=== PATIENT | male | born 1960 | race Caucasian/White ===

== ENCOUNTER 2016-09-08 10:00 | Inpatient (IN) | payer BC ==
[~2016-09-08] VITALS: Ht 190.5 cm; Wt 102.0 kg
[~2016-09-08 10:00] MED LIST: CYCL-319 PO; HYDR-2059 PO; LOSA100T7 PO; NITR25OR2 PO
[2016-09-08] MEDS ORDERED: CEPASTAT LOZENGE MT PRN (13:00)
[2016-09-08] MEDS ORDERED: CYCLOBENZAPRINE 10 MG TAB PO PRN (13:00)
[2016-09-08] MEDS ORDERED: AL HYDROX/MG HYDROX/SIMETH 30 ML CUP PO PRN (13:00)
[2016-09-08] MEDS ORDERED: OXYCODONE/ACETAMINOPHEN (10/325) TAB PO PRN ×2 (13:00)
[2016-09-08] MEDS ORDERED: DIPHENHYDRAMINE 50 MG INJ IV PRN (13:00)
[2016-09-08] MEDS ORDERED: BISACODYL 10 MG SUPP PR PRN (13:00)
[2016-09-08] MEDS ORDERED: ZOLPIDEM 5 MG TAB PO PRN (13:00)
[2016-09-08] MEDS ORDERED: NALOXONE (0.4 MG/ML) INJ IV PRN (13:00)
[2016-09-08] MEDS ORDERED: ONDANSETRON 4 MG INJ IV PRN (13:00)
[2016-09-08] MEDS ORDERED: ACETAMINOPHEN 325 MG TAB PO PRN (13:00)
[2016-09-08 14:52] VITALS: BP 121/64; PULSE 70; RESP 20
[2016-09-08 14:54] VITALS: Ht 190.5 cm; Wt 102.0 kg
[2016-09-08 15:12] LABS: ADD SCAN DIFF NO
[2016-09-08 15:14] LABS: BASOPHILS % 0.6 % (0.0-2.0); EOSINOPHILS # 0.3 10^3/ul (0.0-0.5); EOSINOPHILS % 4.6 % (0.0-7.0); HEMATOCRIT 42.2 % (42.0-52.0); HEMOGLOBIN 14.6 g/dl (14.0-18.0); LYMPHOCYTES # 2.1 10^3/ul (0.8-2.9); LYMPHOCYTES % 30.6 % (15.0-51.0); MEAN CORPUSCULAR HEMOGLOBIN 31.7 pg (29.0-33.0); MEAN CORPUSCULAR HGB CONC 34.6 g/dl (32.0-37.0); MEAN CORPUSCULAR VOLUME 91.5 fl (82.0-101.0); MEAN PLATELET VOLUME 12.7 fl (7.4-10.4); MONOCYTE # 0.5 10^3/ul (0.3-0.9); MONOCYTES % 6.8 % (0.0-11.0); NEUTROPHIL # 3.9 10^3/ul (1.6-7.5); NEUTROPHILS % 57.1 % (39.0-77.0); PLATELET COUNT 194 10^3/UL (140-415); RED BLOOD COUNT 4.61 10^6/ul (4.70-6.10); RED CELL DISTRIBUTION WIDTH 11.7 % (11.5-14.5); WHITE BLOOD COUNT 6.9 10^3/ul (4.8-10.8)
[2016-09-08 15:44] LABS: CALCIUM 9.7 mg/dl (8.4-10.2); CREATININE 0.91 mg/dl (0.61-1.24); POTASSIUM 3.8 mmol/L (3.5-5.1)
[2016-09-08] MEDS: HYDROmorphONE 0.2 MG/ML PCA IV SCH ×3 (16:02→22:59)
[2016-09-08] MEDS: D5W-0.45 NACL + KCL 20 MEQ 1,000 ML IV SCH ×2 (16:05→22:46)
[2016-09-08 16:32] LABS: ADD UMIC YES; URINE BILIRUBIN (Dip) NEGATIVE (NEGATIVE); URINE BLOOD (Dip) TRACE (NEGATIVE); URINE COLOR LT. YELLOW (YELLOW); URINE GLUCOSE (Dip) NEGATIVE (NEGATIVE); URINE KETONES (Dip) TRACE (NEGATIVE); URINE LEUKOCYTE ESTERASE (Dip) NEGATIVE (NEGATIVE); URINE NITRITE (Dip) NEGATIVE (NEGATIVE); URINE TOTAL PROTEIN (Dip) TRACE (NEGATIVE); URINE UROBILINOGEN (Dip) 0.2 E.U./dL (0.1-1.0)
[2016-09-08 16:39] LABS: BACTERIA,URINE RARE
--- NOTE | 2016-09-08 16:43 | RADRPT ---
PROCEDURE: Chest radiograph series. CLINICAL INDICATION: Preop. TECHNIQUE: PA and lateral chest x-ray. COMPARISON: None. FINDINGS: The cardiomediastinal silhouette is unremarkable. The lungs and costophrenic angles are clear. The o sseous structures are unremarkable. IMPRESSION: 1. Unremarkable chest radiograph series. RPTAT: KK .Roni Loya MD, MD Date Time Electronically viewed and signed by .Roni Loya MD, MD on 09/08/2016 16:43 .B/
[2016-09-08] MEDS: HYDROmorphONE 1 MG/ML SYG IV PRN ×4 (18:47→23:04)
[2016-09-08 19:17] VITALS: BP 123/72; RESP 20
[2016-09-08] MEDS: DOCUSATE SODIUM 100 MG CAP PO SCH (20:18)
[2016-09-08] MEDS: ATORVASTATIN 40 MG TAB PO SCH (20:18)
[2016-09-08] MEDS: NITROFURANTOIN (SR) 100 MG CAP PO SCH (20:18)
[2016-09-08] MEDS: LOSARTAN 50 MG TAB PO SCH (20:22)
--- NOTE | 2016-09-08 20:42 | CONS ---
DATE OF ADMISSION: 09/08/2016 DATE OF CONSULTATION: 09/08/2016 HISTORY OF PRESENT ILLNESS: Thank you very much for allowing me to evaluate this 56-year-old male margi walker is to undergo surgery tomorrow for low back pain and radicular left leg pain. Of note, is that de loco did undergo a microdiscectomy, L5-S1, in 06/2015 and had resolution of his back and left leg pain to a level of approximately 90%. Because of recurrent left buttocks and posterior leg pain, not res ponding to conservative therapy, he elected to proceed with surgery. Presently, he denies cough, wh eezing, shortness of breath, nausea, vomiting, or abdominal pain. PAST MEDICAL HISTORY: Includes: 1. Cervical spine disease with left shoulder trapezius pain. Physical therapy was recommended. 2. History of a hypospadias and urethral stricture with history of recurrent urinary tract infectio ns, having been maintained on Macrobid 100 mg b.i.d. 3. Having suffered a stroke manifested with speech disturbance and dizziness, 01/2016, having been maintained on Lipitor and aspirin. 4. History of hypertension, longstanding, having been treated with Losartan. 5. 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 6. Hypospadias surgery. 7. Appendectomy in 03/2016. ALLERGIES: INCLUDE BACTRIM. SOCIAL HISTORY: . Stopped smoking. Occasionally drinks alcohol. MEDICATIONS: 1. Losartan 100 mg per day. 2. Macrobid 100 mg b.i.d. 3. Aspirin. 4. Lipitor 40 mg per day. 5. Along with hydrocodone as needed p.r.n. pain. PHYSICAL EXAMINATION: GENERAL: Prichard male in no acute distress. VITAL SIGNS: BP 128/80, pulse 70, respirations are 20. He was afebrile. EYES: Extraocular muscles were full. NOSE, MOUTH, AND THROAT: Normal. NECK: Supple. There was no jugular venous distention, thyroid enlargement, or adenopathy. Carotid s 2+, no bruits. LUNGS: Clear. HEART: Rhythm regular. No murmur. No third or fourth sound. ABDOMEN: Nontender. Liver and spleen were not palpable. No masses or tenderness were noted. EXTREMITIES: No edema. Calves nontender. NEUROLOGIC: No lateralizing motor weakness. IMPRESSION AND PLAN: I perceive no problems with the planned surgical intervention pending labs. Margi loco will follow him with you with respect to: 1. Blood pressure. Will continue his medications and observe blood pressure throughout. 2. Will evaluate for signs and symptoms of thromboembolic disease. 3. Hyperlipidemia. We will continue his statin. Dictated By: RALEIGH LIMON MD MR/NTS Conf#: [id number] DID#: [id number] CC: LATIA LAWS MD;*[facility]*
[2016-09-08] MEDS ORDERED: TRIMETHOPRIM/SULFAMETHOX (DS) TAB PO SCH (21:00)
[2016-09-08] MEDS ORDERED: NITROFURANTOIN MACROCRYS 100 MG CAP PO SCH (21:00)
[2016-09-09] VITALS (23 sets, daily range): BP systolic 111–148; BP diastolic 60–80; PULSE 72–86; RESP 11–20
[2016-09-09] MEDS: HYDROmorphONE 1 MG/ML SYG IV PRN ×3 (00:26→03:56)
[2016-09-09] MEDS: D5W-0.45 NACL + KCL 20 MEQ 1,000 ML IV SCH ×3 (02:26→16:46)
[2016-09-09] MEDS: HYDROmorphONE 0.2 MG/ML PCA IV SCH ×4 (03:50→21:02)
[2016-09-09 05:19] LABS: ADD SCAN DIFF NO
[2016-09-09 05:25] LABS: BASOPHILS % 0.5 % (0.0-2.0); EOSINOPHILS # 0.5 10^3/ul (0.0-0.5); EOSINOPHILS % 6.5 % (0.0-7.0); HEMATOCRIT 40.7 % (42.0-52.0); HEMOGLOBIN 13.9 g/dl (14.0-18.0); LYMPHOCYTES # 2.6 10^3/ul (0.8-2.9); LYMPHOCYTES % 31.2 % (15.0-51.0); MEAN CORPUSCULAR HEMOGLOBIN 31.4 pg (29.0-33.0); MEAN CORPUSCULAR HGB CONC 34.2 g/dl (32.0-37.0); MEAN CORPUSCULAR VOLUME 92.1 fl (82.0-101.0); MEAN PLATELET VOLUME 12.5 fl (7.4-10.4); MONOCYTE # 0.6 10^3/ul (0.3-0.9); MONOCYTES % 6.9 % (0.0-11.0); NEUTROPHIL # 4.6 10^3/ul (1.6-7.5); NEUTROPHILS % 54.7 % (39.0-77.0); PLATELET COUNT 194 10^3/UL (140-415); RED BLOOD COUNT 4.42 10^6/ul (4.70-6.10); RED CELL DISTRIBUTION WIDTH 11.5 % (11.5-14.5); WHITE BLOOD COUNT 8.4 10^3/ul (4.8-10.8)
[2016-09-09 05:45] LABS: INR 0.94; PROTIME 12.6 Sec (12.2-14.2)
[2016-09-09 05:46] LABS: PARTIAL THROMBOPLASTIN TIME 28.1 Sec (25.0-35.0)
[2016-09-09 05:51] LABS: CREATININE 0.93 mg/dl (0.61-1.24); MAGNESIUM 2.2 mg/dl (1.7-2.5); POTASSIUM 4.2 mmol/L (3.5-5.1)
[2016-09-09] MEDS ORDERED: DEXAMETHASONE 4 MG/ML 1 ML INJ ONE (07:00)
[2016-09-09] MEDS ORDERED: ONDANSETRON 4 MG INJ ONE (07:00)
[2016-09-09] MEDS ORDERED: PROPOFOL 200 MG INJ ONE (07:00)
[2016-09-09] MEDS ORDERED: ROCURONIUM 50 MG INJ ONE ×2 (07:00→09:02)
[2016-09-09] MEDS ORDERED: CEFAZOLIN 2 GM/50 ML (PMX) 50 ML IVPB ONE (08:00)
--- NOTE | 2016-09-09 08:38 | PN ---
Date/Time of Note Date/Time of Note DATE: 09/09/16 TIME: 08:36 Assessment/Plan VTE Prophylaxis VTE Prophylaxis Intervention: other Lines/Catheters IV Catheter Type (from Nrsg): Peripheral IV Urinary Cath still in place: No Assessment/Plan Assessment/Plan 1. Rec back pain and sciatica, surgery is planned today. 2. Prior Stroke 3. Hx HBP, controlled 4. Hx Uti, urine cult pending, pt self-caths q2-3 d. Subjective 24 Hr Interval Summary Respiratory: No shortness of breath Cardiovascular: No chest pain, No orthopenea Gastrointestinal: no complaints Genitourinary: no complaints Musculoskeletal: back pain (molderate) Exam/Review of Systems Vital Signs Vitals Vital Signs Date Time Temp Pulse Resp B/P Pulse Ox O2 Delivery O2 Flow Rate FiO2 09/09/16 04:42 18 09/09/16 00:41 98.2 83 131/75 96 09/08/16 14:52 Room Air Intake and Output 09/08/16 09/08/16 09/09/16 15:00 23:00 07:00 Intake Total 440 ml 1870 ml Output Total 150 ml 5 ml Balance 290 ml 1865 ml Exam Neck: No jvd Respiratory: clear to auscultation Cardiovascular: regular rate and rhythm Gastrointestinal: soft Extremities: No edema (and no calf tend) Results Result Diagram: 09/09/16 0426 09/09/16 0426 Results 24 hrs Laboratory Tests Test 09/08/16 14:25 09/08/16 15:10 09/09/16 04:26 White Blood Count 6.9 # 8.4 # Red Blood Count 4.61 L 4.42 L Hemoglobin 14.6 13.9 L Hematocrit 42.2 40.7 L Mean Corpuscular Volume 91.5 92.1 Mean Corpuscular Hemoglobin 31.7 31.4 Mean Corpuscular Hemoglobin Concent 34.6 34.2 Red Cell Distribution Width 11.7 11.5 Platelet Count 194 194 Mean Platelet Volume 12.7 H 12.5 H Neutrophils % 57.1 54.7 Lymphocytes % 30.6 31.2 Monocytes % 6.8 6.9 Eosinophils % 4.6 6.5 Basophils % 0.6 0.5 Nucleated Red Blood Cells % 0.0 0.0 Neutrophils # 3.9 4.6 Lymphocytes # 2.1 2.6 Monocytes # 0.5 0.6 Eosinophils # 0.3 0.5 Basophils # 0.0 0.0 Nucleated Red Blood Cells # 0.0 0.0 Sodium Level 142 142 Potassium Level 3.8 4.2 Chloride Level 106 106 Carbon Dioxide Level 25 29 Anion Gap 15 11 Blood Urea Nitrogen 21 H 16 Creatinine 0.91 0.93 Glucose Level 100 108 Calcium Level 9.7 9.0 Urine Color LT. YELLOW Urine Clarity CLEAR Urine pH 6.0 Urine Specific [place] 1.015 Urine Ketones TRACE Urine Nitrite NEGATIVE Urine Bilirubin NEGATIVE Urine Urobilinogen 0.2 E.U./dL Urine Leukocyte Esterase NEGATIVE Urine Microscopic RBC 5-10 Urine Microscopic WBC 2-5 Urine Epithelial Cells OCCASIONAL Urine Bacteria RARE Urine Hemoglobin TRACE Urine Glucose NEGATIVE Urine Total Protein TRACE Prothrombin Time 12.6 Prothrombin Time Ratio 1.0 INR International Normalized Ratio 0.94 Activated Partial Thromboplast Time 28.1 Magnesium Level 2.2 Medications Medications Current Medications Potassium Chloride/Dextrose/ Sod Cl (D5-1/2ns + KCl 20 Meq) 1,000 ml @ 100 mls/ hr Q10H IV Last administered on 09/09/16 02:26; Admin Dose 100 MLS/HR; Start 09/08/16 at 12:46 Oxycodone/ Acetaminophen (Endocet (10/ 325)) 1 tab Q4H PRN PO PAIN LEVEL 1-5; Start 09/08/16 at 13:00 Oxycodone/ Acetaminophen (Endocet (10/ 325)) 2 tab Q4H PRN PO PAIN LEVEL 6-10; Start 09/08/16 at 13:00 Hydromorphone HCl (Dilaudid) 0.2 mg Q1H PRN IV BREAKTHROUGH PAIN Last administered on 09/09/16 03:56; Admin Dose 0.2 MG; Start 09/08/16 at 13:00 Ondansetron HCl (Zofran Inj) 4 mg Q6H PRN IV NAUSEA AND/OR VOMITING; Start 03/15 at 13:00 Bisacodyl (Dulcolax Supp) 10 mg DAILY PRN [place] CONSTIPATION; Start 09/08/16 at 13 :00 Docusate Sodium (Colace) 100 mg BID PO Last administered on 09/08/16 20:18; Admin Dose 100 MG; Start 09/08/16 at 21:00 Al Hydrox/Mg Hydrox/Simethicone (Mag-Al Plus) 15 ml Q6H PRN PO CONSTIPATION/ DYSPEPSIA; Start 09/08/16 at 13:00 Acetaminophen (Tylenol Tab) 650 mg Q4H PRN PO MCKEON OR TEMP GREATER THAN 101.3F; Start 09/08/16 at 13:00 Cyclobenzaprine HCl (Flexeril) 10 mg TID PRN PO MUSCLE SPASMS; Start 09/08/16 at 13:00 Phenol (Cepastat Lozenge) 1 lozenge PRN PRN MT SORE THROAT; Start 09/08/16 at 13:00 Diphenhydramine HCl (Benadryl) 25 mg Q6H PRN IV ITCHING; Start 09/08/16 at 13: 00 Naloxone HCl (Narcan) 0.2 mg Q2M PRN IV RR 8 BREATHS/MIN OR LESS; Start at 13:00 Hydromorphone HCl (Dilaudid VERIFICATION REP) VERIFICATION REP to be started in PACU Q4PCA IV Last administered on 09/09/16 08:04; Admin Dose 6 MG; Start 09/08/16 at 13:00; Stop 09/10/16 at 10:00 Miscellaneous Information 1. Hold VERIFICATION REP at 1,000... VERIFICATION REP IV ; Start 09/08/16 at 13: 00; Stop 09/10/16 at 10:00 Nitrofurantoin Macrocrystals (Macrobid) 100 mg BID PO Last administered on 09/08 20:18; Admin Dose 100 MG; Start 09/08/16 at 21:00 Losartan Potassium (Cozaar) 100 mg QHS PO Last administered on 09/08/16 20:22 ; Admin Dose 100 MG; Start 09/08/16 at 21:00 Atorvastatin Calcium (Lipitor) 40 mg HS PO Last administered on 09/08/16 20:18 ; Admin Dose 40 MG; Start 09/08/16 at 21:00 RALEIGH LIMON MD Sep 09, 2016 08:38
[2016-09-09] MEDS ORDERED: D5W-0.45 NACL + KCL 20 MEQ 1,000 ML IV SCH (08:40)
--- NOTE | 2016-09-09 08:40 | HPN ---
Date/Time of Note Date/Time of Note DATE: 09/09/16 TIME: 08:40 Interval H&P Admission Note Pt. seen H&P reviewed: No system changes CARLOS SALAZAR PA-C Sep 09, 2016 08:40
[2016-09-09] MEDS ORDERED: LABETALOL HCL 20MG INJ IV PRN (09:00)
[2016-09-09] MEDS: DOCUSATE SODIUM 100 MG CAP PO SCH ×2 (09:00→21:04)
[2016-09-09] MEDS ORDERED: HYDROmorphONE 0.2 MG/ML PCA IV SCH (09:00)
[2016-09-09] MEDS ORDERED: FENTAnyl 50 MCG/ML VIAL IV PRN ×3 (09:00)
[2016-09-09] MEDS ORDERED: HYDROmorphONE 1 MG/ML SYG IV PRN (09:00)
[2016-09-09] MEDS ORDERED: HYDROmorphONE (0.2 MG/ML) 10ML SYG IV PRN ×3 (09:00)
[2016-09-09] MEDS ORDERED: NALOXONE (0.4 MG/ML) INJ IV PRN (09:00)
[2016-09-09] MEDS ORDERED: AL HYDROX/MG HYDROX/SIMETH 30 ML CUP PO PRN (09:00)
[2016-09-09] MEDS ORDERED: MEPERIDINE 25 MG INJ IV PRN (09:00)
[2016-09-09] MEDS ORDERED: BISACODYL 10 MG SUPP PR PRN (09:00)
[2016-09-09] MEDS ORDERED: DOCUSATE SODIUM 100 MG CAP PO SCH (09:00)
[2016-09-09] MEDS ORDERED: hydrALAzine 20 MG INJ IV PRN (09:00)
[2016-09-09] MEDS ORDERED: ZOLPIDEM 5 MG TAB PO PRN (09:00)
[2016-09-09] MEDS ORDERED: EPHEDrine SULFATE 50 MG/5 ML SYG IV PRN (09:00)
[2016-09-09] MEDS ORDERED: OXYCODONE/ACETAMINOPHEN (10/325) TAB PO PRN ×2 (09:00)
[2016-09-09] MEDS ORDERED: OXYCODONE/ACETAMINOPHEN (5/325) TAB PO PRN (09:00)
[2016-09-09] MEDS ORDERED: CYCLOBENZAPRINE 10 MG TAB PO PRN (09:00)
[2016-09-09] MEDS ORDERED: CEPASTAT LOZENGE MT PRN (09:00)
[2016-09-09] MEDS ORDERED: DIPHENHYDRAMINE 50 MG INJ IV PRN ×2 (09:00)
[2016-09-09] MEDS ORDERED: ACETAMINOPHEN 325 MG TAB PO PRN (09:00)
[2016-09-09] MEDS ORDERED: ONDANSETRON 4 MG INJ IV PRN ×2 (09:00)
[2016-09-09] MEDS ORDERED: LIDOCAINE 2% (SDV) 5 ML INJ ONE (09:02)
[2016-09-09] MEDS ORDERED: DOPamine-D5W 1.6 MG/ML 250 ML ONE (09:02)
[2016-09-09] MEDS ORDERED: CEFAZOLIN 1 GM INJ ONE (09:03)
[2016-09-09] MEDS ORDERED: MIDAZOLAM 1 MG/ML 2 ML INJ ONE (09:04)
[2016-09-09] MEDS ORDERED: BUPIVACAINE 0.25%/EPI (SDV) 30 ML INJ ONE (09:10)
[2016-09-09] MEDS ORDERED: BUPIVACAINE 0.25% (MPF) 30 ML INJ ONE (09:10)
[2016-09-09] MEDS ORDERED: SURGIFOAM POWDER 1 GM KIT ONE (09:10)
[2016-09-09] MEDS ORDERED: THROMBIN 5000 UNIT VIAL ONE (09:11)
[2016-09-09] MEDS ORDERED: CA CHLORIDE 10% 10 ML SYRINGE ONE ×2 (09:11→10:09)
[2016-09-09] MEDS ORDERED: POLYMYXIN/BACITRACIN 1L IRRIG ONE (09:18)
[2016-09-09] MEDS ORDERED: morphine 10 MG INJ ONE (09:44)
[2016-09-09] MEDS ORDERED: LABETALOL HCL 20MG INJ ONE (09:50)
[2016-09-09] MEDS ORDERED: BUPIVACAINE 0.25%/EPI (SDV) 30 ML INJ INJ ONE (09:53)
[2016-09-09] MEDS ORDERED: POLYMYXIN/BACITRACIN 1L IRRIG IRR ONE (09:53)
[2016-09-09] MEDS ORDERED: THROMBIN 5000 UNIT VIAL TOP ONE (09:53)
[2016-09-09] MEDS ORDERED: BUPIVACAINE 0.25% (MPF) 30 ML INJ INJ ONE (10:57)
[2016-09-09] MEDS ORDERED: SUGAMMADEX SODIUM 200 MG/2 ML VIAL IV ONE ×2 (11:09→11:11)
--- NOTE | 2016-09-09 11:42 | OPR ---
DATE OF OPERATION: 09/09/2016 PREOPERATIVE DIAGNOSES: Recurrent left L5-S1 disk herniation with radiculopathy and progressive wea kness. POSTOPERATIVE DIAGNOSES: Recurrent left L5-S1 disk herniation with radiculopathy and progressive we akness. OPERATION PERFORMED: 1. Left L5-S1 revision lumbar decompression and diskectomy. 2. Use of operative microscope. 3. Lateral localizing film with interpretation without radiologist present. 4. Intraoperative neuromonitoring (1.5 hours). PRIMARY SURGEON: Elijah Nathan MD PROGRAMMER OPERATOR NUMERICAL CONTROL: ALEENA Reed NEED FOR INDUSTRIAL WASTE INSPECTOR: During this spinal surgical procedure, my assistant center director was used to retrac t and protect the spinal nerves and dural sac. My assistant center director also employed the suction catheters to evacuate blood from the surgical field to improve visualization of the neural structures. The isaura tant was medically necessary to facilitate the completion of the surgery in a safe and expeditious m tim. [facility] regulations, as well as hospital bylaws, preclude the use of non-license d health care personnel, such as operating room technicians, to perform these functions. FINDINGS: Neuromonitoring at start of the case revealed left L4 amplitude down 30%, left L5 amplitu de down 40%, left S1 amplitude down 40%. At the end of the case, nerve signals returned to normal. The patient had a large extruded fragment. He also had large free fragments within the disk space. ESTIMATED BLOOD LOSS: Less than 30 mL. DRAINS: None. SPECIMENS: Disk. COMPLICATIONS OF PROCEDURES: None. ANESTHESIOLOGIST: Dr. Rose TYPE OF ANESTHESIA: General. INDICATIONS FOR PROCEDURE: This is a 56-year-old gentleman with progressive radiculopathy in left l ower extremity with weakness. He had intractable pain despite conservative measures; therefore, he was admitted to the hospital on 09/08/2016 to undergo urgent surgery. He was medically cleared and stable for surgery to be performed as outlined above. Preoperatively, we discussed the risks, benef its, and alternatives. He understood and wished to proceed. DESCRIPTION OF PROCEDURE IN DETAIL: The patient was identified in the preoperative holding area, [facility], taken to the operating room, where he was successfully placed under general an esthesia. Neuromonitoring leads were placed, sequential compressive devices were applied. Neuromon itoring was utilized during the procedure for 1.5 hours to include SSEP, MEP, and EMG. This was per formed by [employer]. Start time was 9:45 a.m., closure time was 11:15 a.m. The patient was placed in downward turned prone position over Steffen frame. All bony prominences were well padded. The back prepped and draped in the usual sterile fashion. I injected the paraspinal musculature wi th 0.25% Marcaine and epinephrine. I utilized the patient's previous incision. I incised down to d orsal fascia. I then subperiosteally dissected the left L5 lamina. I identified the previous hemil aminotomy defect. I placed a curet and a lateral localizing film was obtained to confirm the correc t levels. Once this was confirmed, microscope was brought in and a revision decompression was performed. I pe rformed a partial facetectomy. I then identified the nerve root which my assistant center director protected. I id entified the hole in the anulus and I entered this and removed the large extruded fragments. The pa tient had a significant amount of free fragments within the disk space and I spent quite a bit of ti me removing as much of the free fragments as I could. Once this was done, I irrigated the disk spac e and the wound. Hemostasis was achieved with Surgifoam and bipolar cautery. At this point, all ne rve signals returned to normal. Valsalva maneuver was performed and there was no leak of CSF. Anes thesiologist jin peripheral blood, which was spun using the Medic Trace device. I took the platelet-p oor plasma and mixed this with thrombin and injected this over the dura for hemostatic purposes. I removed the retractors then injected the paraspinal musculature with plain Marcaine. I closed the d eep fascia with #1 Vicryl stitch. I closed subcutaneous tissue with 2-0 Vicryl stitch. Microscope was taken off the field. A 4-0 Monocryl closure was then performed. Dermabond was then applied. T he patient was then awakened from anesthesia and taken to recovery room in stable condition. Lap, s ponge, and instrument counts were correct x2. There were no apparent complications during the proce dure. The patient will be readmitted to the orthopedic mandel for routine postoperative care to include pain control, neurovascular checks, antibiotics, and physical therapy. Dictated By: ELIJAH ESPINOZA/MYRON Conf#: [id number] DID#: [id number]
--- NOTE | 2016-09-09 12:25 | RADRPT ---
PROCEDURE: Intraoperative XR. CLINICAL INDICATION: Intraoperative radiograph during L5-S1 microdiskectomy. TECHNIQUE: Spot intraoperative lateral lumbar x-ray image was provided. The images were reviewed on a high-resolution PACS workstation. COMPARISON: None available FINDINGS: Spot intraoperative lateral lumbar view were provided during L5-S1 microdiskectomy. The images demo nstrate metallic instrumentation at the level of 05 S1. IMPRESSION: 1. Spot intraoperative lateral lumbar view during L5-S1 microdiskectomy were provided. 2. Please see operative report of the same day for further information. RPTAT: DD .Eitan Basurto MD, MD Date Time Electronically viewed and signed by .Eitan Basurto MD, on 09/09/2016 12:24 .S/
--- NOTE | 2016-09-09 12:33 | OPPN ---
Date/Time of Note Date/Time of Note DATE: 09/09/16 TIME: 12:33 Post-Anesthesia Notes Post-Anesthesia Note Last documented vital signs Vital Signs Date Time Temp Pulse Resp B/P Pulse Ox O2 Delivery O2 Flow Rate FiO2 09/09/16 11:55 86 17 128/77 97 Nasal Cannula 09/09/16 11:33 98.1 Activity: WNL Respiratory function: WNL Cardiovascular function: WNL Mental status: Baseline Pain reasonably controlled: Yes Hydration appropriate: Yes Nausea/Vomiting absent: Yes ASHLYN BATISTA Sep 09, 2016 12:33
[2016-09-09] MEDS: NITROFURANTOIN (SR) 100 MG CAP PO SCH ×2 (13:14→21:04)
[2016-09-09] MEDS: CEFAZOLIN 1 GM/50 ML (PMX) 50 ML IVPB SCH (15:45)
--- NOTE | 2016-09-09 15:59 | RADRPT ---
Vent Rate: 73 bpm RR Interval: 0 msec MS Interval: 162 msec QRS Duration: 110 msec QT Interval: 400 msec QTC Interval: 440 msec P-R-T [place]: 61 - 27 - 50 degrees Normal sinus rhythm Normal ECG Electronically Signed By: Jewel Kim [id number]
[2016-09-09] MEDS: LOSARTAN 50 MG TAB PO SCH (21:00)
[2016-09-09] MEDS: ATORVASTATIN 40 MG TAB PO SCH (21:04)
[2016-09-10] MEDS: CEFAZOLIN 1 GM/50 ML (PMX) 50 ML IVPB SCH ×2 (00:02→08:35)
[2016-09-10 00:03] VITALS: BP 147/80; PULSE 106; RESP 18
[2016-09-10] MEDS: HYDROmorphONE 0.2 MG/ML PCA IV SCH ×2 (03:19→08:37)
[2016-09-10 04:59] LABS: ADD SCAN DIFF NO
[2016-09-10 05:08] LABS: BASOPHILS % 0.3 % (0.0-2.0); EOSINOPHILS # 0.3 10^3/ul (0.0-0.5); EOSINOPHILS % 2.6 % (0.0-7.0); HEMATOCRIT 37.7 % (42.0-52.0); HEMOGLOBIN 12.9 g/dl (14.0-18.0); LYMPHOCYTES % 18.5 % (15.0-51.0); MEAN CORPUSCULAR HEMOGLOBIN 31.9 pg (29.0-33.0); MEAN CORPUSCULAR HGB CONC 34.2 g/dl (32.0-37.0); MEAN CORPUSCULAR VOLUME 93.3 fl (82.0-101.0); MEAN PLATELET VOLUME 12.3 fl (7.4-10.4); MONOCYTES % 9.2 % (0.0-11.0); NEUTROPHIL # 7.3 10^3/ul (1.6-7.5); NEUTROPHILS % 69.2 % (39.0-77.0); PLATELET COUNT 188 10^3/UL (140-415); RED BLOOD COUNT 4.04 10^6/ul (4.70-6.10); RED CELL DISTRIBUTION WIDTH 11.9 % (11.5-14.5); WHITE BLOOD COUNT 10.6 10^3/ul (4.8-10.8)
[2016-09-10] MEDS: HYDROmorphONE 1 MG/ML SYG IV PRN (05:10)
[2016-09-10] MEDS: D5W-0.45 NACL + KCL 20 MEQ 1,000 ML IV SCH ×2 (05:16→14:46)
[2016-09-10 06:22] LABS: CALCIUM 8.7 mg/dl (8.4-10.2); CREATININE 0.92 mg/dl (0.61-1.24); MAGNESIUM 2.1 mg/dl (1.7-2.5); POTASSIUM 4.3 mmol/L (3.5-5.1)
[2016-09-10 07:00] VITALS: BP 133/72; RESP 20
--- NOTE | 2016-09-10 08:24 | CONS ---
Date/Time of Note Date/Time of Note DATE: 09/10/16 TIME: 08:22 Assessment/Plan Assessment/Plan Additional Assessment/Plan 1. Doing well post op lumbar laminectomy 2. Low grade temp prob from atelectasis, ua and cult ordered. 3. Labs rev Consultation Date/Type/Reason Admit Date/Time Sep 08, 2016 at 13:36 Initial Consult Date Detailed Summary Respiratory: No cough, No pleuritic pain, No shortness of breath Cardiovascular: No no complaints Gastrointestinal: other (no bm), No pain Genitourinary: hematuria, No dysuria Neurologic: other (pain in left leg has resolved) Exam/Review of Systems Vital Signs Vitals Vital Signs Date Time Temp Pulse Resp B/P Pulse Ox O2 Delivery O2 Flow Rate FiO2 09/10/16 07:00 99.4 94 20 133/72 97 09/10/16 00:03 Room Air 09/09/16 13:15 2.0 Intake and Output 09/09/16 09/09/16 09/10/16 15:00 23:00 07:00 Intake Total 700 ml 700 ml 1550 ml Output Total 60 ml 200 ml 4 ml Balance 640 ml 500 ml 1546 ml Exam Neck: No jvd Respiratory: clear to auscultation Cardiovascular: regular rate and rhythm Gastrointestinal: soft Extremities: No edema (and no calf tend) Results Result Diagram: 09/10/16 0425 09/10/16 0425 Results 24 hrs Laboratory Tests Test 09/10/16 04:25 White Blood Count 10.6 # Red Blood Count 4.04 L Hemoglobin 12.9 L Hematocrit 37.7 L Mean Corpuscular Volume 93.3 Mean Corpuscular Hemoglobin 31.9 Mean Corpuscular Hemoglobin Concent 34.2 Red Cell Distribution Width 11.9 Platelet Count 188 Mean Platelet Volume 12.3 H Neutrophils % 69.2 Lymphocytes % 18.5 Monocytes % 9.2 Eosinophils % 2.6 Basophils % 0.3 Nucleated Red Blood Cells % 0.0 Neutrophils # 7.3 Lymphocytes # 2.0 Monocytes # 1.0 H Eosinophils # 0.3 Basophils # 0.0 Nucleated Red Blood Cells # 0.0 Sodium Level 140 Potassium Level 4.3 Chloride Level 107 Carbon Dioxide Level 26 Anion Gap 11 Blood Urea Nitrogen 11 Creatinine 0.92 Glucose Level 121 Calcium Level 8.7 Magnesium Level 2.1 Medications Medications Current Medications Potassium Chloride/Dextrose/ Sod Cl (D5-1/2ns + KCl 20 Meq) 1,000 ml @ 100 mls/ hr Q10H IV Last administered on 09/10/16 05:16; Admin Dose 100 MLS/HR; Start 09/08/16 at 12:46 Oxycodone/ Acetaminophen (Endocet (10/ 325)) 1 tab Q4H PRN PO PAIN LEVEL 1-5; Start 09/08/16 at 13:00 Oxycodone/ Acetaminophen (Endocet (10/ 325)) 2 tab Q4H PRN PO PAIN LEVEL 6-10; Start 09/08/16 at 13:00 Hydromorphone HCl (Dilaudid) 0.2 mg Q1H PRN IV BREAKTHROUGH PAIN Last administered on 09/10/16 05:10; Admin Dose 0.2 MG; Start 09/08/16 at 13:00 Ondansetron HCl (Zofran Inj) 4 mg Q6H PRN IV NAUSEA AND/OR VOMITING; Start 03/15 at 13:00 Bisacodyl (Dulcolax Supp) 10 mg DAILY PRN [place] CONSTIPATION; Start 09/08/16 at 13 :00 Docusate Sodium (Colace) 100 mg BID PO Last administered on 09/09/16 21:04; Admin Dose 100 MG; Start 09/08/16 at 21:00 Al Hydrox/Mg Hydrox/Simethicone (Mag-Al Plus) 15 ml Q6H PRN PO CONSTIPATION/ DYSPEPSIA Last administered on 09/10/16 05:15; Admin Dose 15 ML; Start at 13:00 Acetaminophen (Tylenol Tab) 650 mg Q4H PRN PO MCKEON OR TEMP GREATER THAN 101.3F Last administered on 09/10/16 00:12; Admin Dose 650 MG; Start 09/08/16 at 13:00 Cyclobenzaprine HCl (Flexeril) 10 mg TID PRN PO MUSCLE SPASMS Last administered on 09/09/16 21:04; Admin Dose 10 MG; Start 09/08/16 at 13:00 Phenol (Cepastat Lozenge) 1 lozenge PRN PRN MT SORE THROAT; Start 09/08/16 at 13:00 Diphenhydramine HCl (Benadryl) 25 mg Q6H PRN IV ITCHING; Start 09/08/16 at 13: 00 Naloxone HCl (Narcan) 0.2 mg Q2M PRN IV RR 8 BREATHS/MIN OR LESS; Start at 13:00 Miscellaneous Information 1. Hold RETAIL CLIENT SOLUTIONS CONSULTANT at 1,000... RETAIL CLIENT SOLUTIONS CONSULTANT IV ; Start 09/08/16 at 13: 00; Stop 09/10/16 at 10:00 Nitrofurantoin Macrocrystals (Macrobid) 100 mg BID PO Last administered on 09/09 21:04; Admin Dose 100 MG; Start 09/08/16 at 21:00 Losartan Potassium (Cozaar) 100 mg QHS PO Last administered on 09/08/16 20:22 ; Admin Dose 100 MG; Start 09/08/16 at 21:00 Atorvastatin Calcium 40 mg 40 mg HS PO Last administered on 09/09/16 21:04; Admin Dose 40 MG; Start 09/08/16 at 21:00 Cefazolin Sodium (Ancef 1 Gm/50 ml (Pmx)) 50 ml @ 100 mls/hr Q8H IVPB Last administered on 09/10/16 00:02; Admin Dose 100 MLS/HR; Start 09/09/16 at 16:00 ; Stop 09/10/16 at 08:29 Hydromorphone HCl (Dilaudid RETAIL CLIENT SOLUTIONS CONSULTANT) RETAIL CLIENT SOLUTIONS CONSULTANT to be started in PACU Q4PCA IV Last administered on 09/10/16 03:19; Admin Dose 6 MG; Start 09/09/16 at 12:00 RALEIGH LIMON MD Sep 10, 2016 08:24
[2016-09-10] MEDS: DOCUSATE SODIUM 100 MG CAP PO SCH (08:35)
[2016-09-10] MEDS: NITROFURANTOIN (SR) 100 MG CAP PO SCH (08:35)
[2016-09-10 10:56] LABS: ADD UMIC NO; URINE BILIRUBIN (Dip) NEGATIVE (NEGATIVE); URINE BLOOD (Dip) NEGATIVE (NEGATIVE); URINE COLOR LT. YELLOW (YELLOW); URINE GLUCOSE (Dip) NEGATIVE (NEGATIVE); URINE KETONES (Dip) NEGATIVE (NEGATIVE); URINE LEUKOCYTE ESTERASE (Dip) NEGATIVE (NEGATIVE); URINE NITRITE (Dip) NEGATIVE (NEGATIVE); URINE TOTAL PROTEIN (Dip) NEGATIVE (NEGATIVE); URINE UROBILINOGEN (Dip) 0.2 E.U./dL (0.1-1.0)
--- NOTE | 2016-09-10 13:41 | DS ---
DATE OF ADMISSION: 09/08/2016 DATE OF DISCHARGE: 09/10/2016 ADMITTING DIAGNOSIS: Recurrent disk herniation. DISCHARGE DIAGNOSIS: Recurrent disk herniation. PROCEDURE: The patient was taken to the operating room on 09/09/2016 and underwent revision diskect gast[place]. HOSPITAL COURSE: The patient was admitted to the orthopedic mandel on 09/08/2016 for intractable back pain and radiculopathy with weakness. He failed conservative measures and due to the neurological deficits, it was recommended he undergo urgent surgery. Preoperatively, we discussed the risks, em efits, and alternatives. He understood and wished to proceed and underwent surgery on 09/09/2016. The patient did well with the surgery and by postoperative day 1, he was deemed stable for discharge with followup arranged with the undersigned. Dictated By: LATIA ESPINOZA/MYRON Conf#: [id number] DID#: [id number]
== END 2016-09-10 16:30 | disposition home or self-care (01) | DRG 520 ==
LOC: MS1 13:36 → EDSTATUS 09-09 10:00
PROVIDERS: ADMIT Specialist; ATTEND Specialist
PROC: 01NB0ZZ Release Lumbar Nerve, Open Approach (ICD-10-PCS; 2016-09-09)
PROC: 4A11X4G Monitoring of Peripheral Nervous Electrical Activity, Intraoperative, External Approach (ICD-10-PCS; 2016-09-09)
PROC: 0SB40ZZ Excision of Lumbosacral Disc, Open Approach (ICD-10-PCS; principal; 2016-09-09 10:00)
DX: M51.17 Intervertebral disc disorders with radiculopathy, lumbosacral region (principal); I10 Essential (primary) hypertension; Z98.1 Arthrodesis status; Z87.891 Personal history of nicotine dependence; M51.26 Other intervertebral disc displacement, lumbar region; Z87.440 Personal history of urinary (tract) infections; I69.319 Unspecified symptoms and signs involving cognitive functions following cerebral infarction; Z98.890 Other specified postprocedural states; E78.5 Hyperlipidemia, unspecified
CPT/HCPCS: 71020; 72020; 80048; 81001; 81003; 83735; 85025; 85610; 85730; 86999; 87086; 93005; 97116; 97162; 97530; J0690; J1100; J1170; J1265; J2250; J2270; J2405; J3010; J3480